=== PATIENT | female | born 1945 | race Caucasian/White ===

== ENCOUNTER 2017-03-07 12:25 | Emergency (ER) | payer OTHER, MEDICARE ==
[~2017-03-07] VITALS: Ht 162.6 cm; Wt 59.0 kg
[2017-03-07 12:25] VITALS: BP_SYST 135
[~2017-03-07 12:25] MED LIST: LEVO50TA77; LISI10TA5 PO; MECL25TA3 PO
[2017-03-07] MEDS ORDERED: ONDANSETRON 4 MG ODT TAB PO ONE (13:00)
[2017-03-07] MEDS ORDERED: NACL 0.9% 1,000 ML IV ONE (14:30)
[2017-03-07] MEDS ORDERED: ONDANSETRON HCL 4 MG/2 ML VIAL IVP ONE (14:30)
[2017-03-07 14:50] LABS: BASOPHILS # (AUTO) 0.1 K/uL (0.0-0.2); BASOPHILS % (AUTO) 1.1 % (0.0-2.0); EOSINOPHILS % (AUTO) 0.2 % (0.0-4.0); HEMATOCRIT 37.4 % (36-48); HEMOGLOBIN 12.6 g/dL (12.0-16.0); LYMPHOCYTES # (AUTO) 0.6 K/uL (1.0-5.5); LYMPHOCYTES % (AUTO) 6.8 % (20.5-51.5); MEAN CORPUSCULAR HEMOGLOBIN 31 pg (27-31); MEAN CORPUSCULAR HGB CONC 34 % (32-36); MEAN CORPUSCULAR VOLUME 91 fL (79.0-98.0); MONOCYTES # (AUTO) 0.3 K/uL (0.0-1.0); MONOCYTES % (AUTO) 3.4 % (1.7-9.3); NEUTROPHILS # (AUTO) 7.2 K/uL (1.8-7.7); NEUTROPHILS % (AUTO) 88.5 % (40.0-70.0); PLATELET COUNT (AUTO) 161 K/uL (130-430); RED BLOOD CELL COUNT(AUTO) 4.11 MIL/uL (4.2-6.2); RED CELL DISTRIBUTION WIDTH 12.4 % (9.0-15.0); WHITE BLOOD COUNT (AUTO) 8.3 K/uL (4.8-10.8)
[2017-03-07 14:58] LABS: CALCIUM 8.4 mg/dL (8.4-11.0); CREATININE 0.67 mg/dL (0.55-1.30); POTASSIUM 3.3 mmol/L (3.5-5.1)
[2017-03-07 15:00] LABS: PROTHROMBIN TIME 10.7 SECS (9.5-12.5)
[2017-03-07 15:02] LABS: TOTAL BILIRUBIN 0.5 mg/dL (0.0-1.0)
[2017-03-07] MEDS ORDERED: IOHEXOL 100 ML IV ONE (15:21)
[2017-03-07 16:11] LABS: BILIRUBIN,URINE NEGATIVE (NEGATIVE); BLOOD, URINE NEGATIVE (NEGATIVE); CLARITY/URINE SL CLOUDY (CLEAR); COLOR,URINE YELLOW (YELLOW); GLUCOSE,URINE NEGATIVE (NEGATIVE); KETONES,URINE 1+ (NEGATIVE); LEUKOCYTE ESTERASE ,URINE NEGATIVE (NEGATIVE); NITRITE, URINE NEGATIVE (NEGATIVE); PH,URINE 7.5 (5.0-8.0); PROTEIN URINE NEGATIVE (NEGATIVE); UROBILINOGEN,URINE 0.2 (0.2-1.0)
[2017-03-07 16:41] LABS: BACTERIA,URINE FEW /HPF (None Seen); MUCUS,URINE None Seen /LPF (None Seen); RBC,URINE 0-3 /HPF (0-3); URINE AMORPHOUS PHOSPHATES 3+ /HPF (None Seen); WBC,URINE 0-3 /HPF (0-3)
[2017-03-07] MEDS ORDERED: ACETAMINOPHEN 500 MG TABLET PO ONE (17:30)
[2017-03-07] MEDS ORDERED: ACETAMINOPHEN 500 MG TABLET ONE (17:37)
[2017-03-07 17:47] VITALS: BP_SYST 131
== END 2017-03-07 17:47 | disposition home or self-care (01) ==
LOC: SED 12:25
DX: K59.00 Constipation, unspecified (principal); K62.3 Rectal prolapse; R11.2 Nausea with vomiting, unspecified; I10 Essential (primary) hypertension; Z90.710 Acquired absence of both cervix and uterus; Z96.642 Presence of left artificial hip joint; Z96.611 Presence of right artificial shoulder joint
CPT/HCPCS: 36415; 74020; 74177; 80053; 80061; 81000; 83880; 85025; 85610; 85730; 93005; 96361; 96374; 99285; J2405; J7030; Q0162; Q9967

== ENCOUNTER 2019-04-01 14:24 | Emergency (ER) | payer OTHER, MEDICARE ==
[~2019-04-01] VITALS: Ht 165.1 cm; Wt 74.8 kg
[~2019-04-01 14:24] MED LIST changes: -LEVO50TA77; +SYN50 PO
--- NOTE | 2019-04-01 14:24 | NUR ---
ACCORDING TO EMS BLS PT WAS GIVEN MORPHINE 4MG AND ZOFRAN 4 MG IV
--- NOTE | 2019-04-01 14:24 | NUR ---
DYLAN DAWKINS at bedside examining patient.
--- NOTE | 2019-04-01 14:24 | NUR ---
BROUGHT IN BY [facility] AND TRIAGED. PLACED IN BED #3, REPORT GIVEN TO JOSELO
[2019-04-01 14:25] VITALS: BP_SYST 141
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
[2019-04-01] MEDS: MORPHINE 4 MG/ML INJ. SYRINGE IVP ONE (14:40)
[2019-04-01] MEDS: ONDANSETRON HCL 4 MG/2 ML VIAL IVP ONE ×2 (14:40→15:46)
--- NOTE | 2019-04-01 14:50 | NUR ---
PATIENT GETTING LABS DRAWN AT BEDSIDE.
[2019-04-01] MEDS: METOCLOPRAMIDE HCL 10 MG/2 ML VIAL IVP ONE (15:05)
[2019-04-01 15:06] LABS: BASOPHILS # (AUTO) 0.1 K/uL (0.0-0.2); BASOPHILS % (AUTO) 0.8 % (0.0-2.0); EOSINOPHILS # (AUTO) 0.1 K/uL (0.0-0.4); EOSINOPHILS % (AUTO) 0.8 % (0.0-4.0); LYMPHOCYTES # (AUTO) 1.5 K/uL (1.0-5.5); LYMPHOCYTES % (AUTO) 17.7 % (20.5-51.5); MEAN CORPUSCULAR HEMOGLOBIN 31 pg (27-31); MEAN CORPUSCULAR HGB CONC 33 % (32-36); MEAN CORPUSCULAR VOLUME 93 fL (79.0-98.0); MONOCYTES # (AUTO) 0.5 K/uL (0.0-1.0); MONOCYTES % (AUTO) 6.7 % (1.7-9.3); NEUTROPHILS # (AUTO) 6.1 K/uL (1.8-7.7); PLATELET COUNT (AUTO) 146 K/uL (130-430); RED CELL DISTRIBUTION WIDTH 13.1 % (9.0-15.0); WHITE BLOOD COUNT (AUTO) 8.2 K/uL (4.8-10.8)
[2019-04-01] MEDS: fentaNYL CITRATE/PF 100 MCG/2 ML AMP IVP ONE ×2 (15:09→16:45)
--- NOTE | 2019-04-01 15:10 | NUR ---
PATIENT WAS ABOUT TO GO TO CT WHEN PATIENT STARTED THROWING UP. PATIENT TURNED ON SIDE. PATIENT HAD SO ASPIRATION. PATIENT CLEANED UP. PATIENT GIVEN MORE NAUSEA AND PAIN MEDICATION.
--- NOTE | 2019-04-01 15:12 | NUR ---
PATIENT LEFT TO CT VIA GURNEY IN STABLE CONDITION.
[2019-04-01 15:14] LABS: ANION GAP 12 (5-15); CALCIUM 9.1 mg/dL (8.4-11.0); CHLORIDE 103 mmol/L (98-107); CREATININE 0.91 mg/dL (0.55-1.30); GLUCOSE 107 mg/dL (70-99); SODIUM SERUM 137 mmol/L (136-145); UREA NITROGEN, BLOOD 17 mg/dL (8-21)
[2019-04-01 15:19] LABS: ALANINE AMINOTRANSFERASE 13 U/L (12-78); ALBUMIN 3.7 g/dL (3.4-4.8); ASPARTATE AMINOTRANSFERASE 22 U/L (10-37); TOTAL BILIRUBIN 0.5 mg/dL (0.0-1.0)
--- NOTE | 2019-04-01 15:50 | NUR ---
SPOKE TO ABOUT END [facility] LIFE CARE FOR . STATES THAT PATIENT FULL CODE.
[2019-04-01] MEDS: NACL 0.9% 1,000 ML IV ONE (16:44)
[2019-04-01] MEDS: POTASSIUM CHLORIDE 40 MEQ in NS 250 ML IV ONE (16:44)
--- NOTE | 2019-04-01 16:50 | NUR ---
# 16 FR In and Out catheter with use of sterile technique. Urine sample collected and sent to lab. Pt tolerated procedure WELL. Patient unable to toilet self.
[2019-04-01] MEDS: PROCHLORPERAZINE EDISYLATE 10 MG/2 ML VIAL IVP ONE (17:02)
[2019-04-01 17:04] LABS: BILIRUBIN,URINE NEGATIVE (NEGATIVE); BLOOD, URINE 1+ (NEGATIVE); CLARITY/URINE SL CLOUDY (CLEAR); COLOR,URINE YELLOW (YELLOW); GLUCOSE,URINE NEGATIVE (NEGATIVE); KETONES,URINE TRACE (NEGATIVE); LEUKOCYTE ESTERASE ,URINE 1+ (NEGATIVE); NITRITE, URINE POSITIVE (NEGATIVE); PH,URINE 7.5 (5.0-8.0); PROTEIN URINE NEGATIVE (NEGATIVE); UROBILINOGEN,URINE 0.2 (0.2-1.0)
[2019-04-01 17:12] LABS: BACTERIA,URINE MANY /HPF (None Seen); RBC,URINE 0-3 /HPF (0-3)
[2019-04-01 17:13] LABS: MUCUS,URINE 2+ /LPF (None Seen); URINE AMORPHOUS PHOSPHATES 3+ /HPF (None Seen)
--- NOTE | 2019-04-01 17:13 | NUR ---
PATIENT GETTING X RAY IN BED.
[2019-04-01] MEDS ORDERED: VORT10TA PO (17:43)
--- NOTE | 2019-04-01 17:43 | NUR ---
Medication reconciliation completed with information provided by SON. Any prior medication reconciliation on file was reviewed and corrected.
[2019-04-01] MEDS: cefTRIAXone 1 GM IVPB PREMIX 50 ML IV ONE (17:51)
--- NOTE | 2019-04-01 18:01 | NUR ---
DR DAWKINS SPEAKING WITH DR ELLIS FOR POSSIBLE ADMISSION
--- NOTE | 2019-04-01 18:06 | NUR ---
DR DAWKINS SPEAKING WITH DR HILL AT [facility]
--- NOTE | 2019-04-01 18:20 | NUR ---
DR DAWKINS AT BEDSIDE TALKING TO PATIENT AND .
--- NOTE | 2019-04-01 18:40 | NUR ---
GAVE REPORT TO NGUYỄN MATA
--- NOTE | 2019-04-01 18:57 | NUR ---
Patient to be transferred to [facility] ER. Is being transferred due to higher level of care. Receiving facility has accepting physician and available space. ER physician has signed transfer form. Patient or responsible libertarian has agreed to transfer and signed form. Patient belongings inventoried and will be sent with patient. Copy of nursing notes, lab reports, EKG, Physicians Orders and X-rays to be sent with patient. Report called to NGUYỄN at receiving facility. Receiving physician is DR HILL. Patient leaving now with ems.
[2019-04-01 18:58] VITALS: BP_SYST 130
== END 2019-04-01 18:57 | disposition short-term general hospital (02) ==
LOC: SED 14:24
DX: S22.32XA Fracture of one rib, left side, initial encounter for closed fracture (principal); S42.202A Unspecified fracture of upper end of left humerus, initial encounter for closed fracture; E87.6 Hypokalemia; N39.0 Urinary tract infection, site not specified; R11.2 Nausea with vomiting, unspecified; I10 Essential (primary) hypertension; Z88.8 Allergy status to other drugs, medicaments and biological substances; V47.6XXA Car passenger injured in collision with fixed or stationary object in traffic accident, initial encounter; Y93.89 Activity, other specified; Y92.828 Other wilderness area as the place of occurrence of the external cause; Y99.8 Other external cause status
CPT/HCPCS: 36415; 70450; 71250; 72125; 73030; 74176; 80053; 81000; 85025; 87086; 87186; 93005; 96365; 96366; 96368; 96375; 96376; 99291; 99292; J0696; J0780; J2270; J2405; J2765; J3010; J3480; J7030; J7050

== ENCOUNTER 2020-11-18 08:29 | Emergency (ER) | payer OTHER, MEDICARE ==
[~2020-11-18] VITALS: Ht 162.6 cm; Wt 59.9 kg
[~2020-11-18 08:29] MED LIST changes: -LISI10TA5 PO; -MECL25TA3 PO; +VORT10TA PO
[2020-11-18 08:50] VITALS: BP_SYST 138
[2020-11-18] MEDS: ONDANSETRON 4 MG ODT TAB PO ONE (09:00)
[2020-11-18] MEDS: DIPH-TET-PERTUS Vaccine 0.5 ML VIAL (ADACEL) I.M. ONE (09:02)
[2020-11-18] MEDS: LIDOCAINE 1% 10 MG/ML, 20 ML MDV INJ ONE (10:25)
[2020-11-18 11:19] VITALS: BP_SYST 143
== END 2020-11-18 11:20 | disposition home or self-care (01) ==
LOC: SED 08:29
DX: S01.81XA Laceration without foreign body of other part of head, initial encounter (principal); I10 Essential (primary) hypertension; Z85.9 Personal history of malignant neoplasm, unspecified; W18.39XA Other fall on same level, initial encounter; Y93.89 Activity, other specified; Y92.89 Other specified places as the place of occurrence of the external cause; Y99.8 Other external cause status
CPT/HCPCS: 12013; 70450; 76376; 90471; 90715; 99284; J2001; Q0162

== ENCOUNTER 2021-01-30 18:38 | Emergency (ER) | payer OTHER, MEDICARE ==
[~2021-01-30] VITALS: Ht 157.5 cm; Wt 59.9 kg
[2021-01-30 18:41] VITALS: BP_SYST 108
[2021-01-30 19:43] LABS: BASOPHILS # (AUTO) 0.1 K/uL (0.0-0.2); BASOPHILS % (AUTO) 1.3 % (0.0-2.0); EOSINOPHILS # (AUTO) 0.1 K/uL (0.0-0.4); EOSINOPHILS % (AUTO) 1.8 % (0.0-4.0); HEMATOCRIT 36.3 % (36-48); HEMOGLOBIN 12.1 g/dL (12.0-16.0); LYMPHOCYTES # (AUTO) 1.7 K/uL (1.0-5.5); LYMPHOCYTES % (AUTO) 30.1 % (20.5-51.5); MEAN CORPUSCULAR HEMOGLOBIN 31 pg (27-31); MEAN CORPUSCULAR HGB CONC 33 % (32-36); MEAN CORPUSCULAR VOLUME 92 fL (79.0-98.0); MONOCYTES # (AUTO) 0.6 K/uL (0.0-1.0); MONOCYTES % (AUTO) 9.9 % (1.7-9.3); NEUTROPHILS # (AUTO) 3.2 K/uL (1.8-7.7); NEUTROPHILS % (AUTO) 56.9 % (40.0-70.0); PLATELET COUNT (AUTO) 169 K/uL (130-430); RED BLOOD CELL COUNT(AUTO) 3.93 MIL/uL (4.2-6.2); RED CELL DISTRIBUTION WIDTH 13.6 % (9.0-15.0); WHITE BLOOD COUNT (AUTO) 5.6 K/uL (4.8-10.8)
[2021-01-30 20:07] LABS: ANION GAP 11 (5-15); CALCIUM 9.2 mg/dL (8.4-11.0); CHLORIDE 105 mmol/L (98-107); CREATININE 0.79 mg/dL (0.55-1.30); GLUCOSE 91 mg/dL (70-99); SODIUM SERUM 141 mmol/L (136-145); UREA NITROGEN, BLOOD 23 mg/dL (8-21)
[2021-01-30 20:11] LABS: ALANINE AMINOTRANSFERASE 10 U/L (12-78); ALBUMIN 3.5 g/dL (3.4-4.8); ASPARTATE AMINOTRANSFERASE 9 U/L (10-37); TOTAL BILIRUBIN 0.4 mg/dL (0.0-1.0)
[2021-01-30 20:29] LABS: PROTHROMBIN TIME 9.9 SECS (9.5-12.5)
[2021-01-30 20:53] LABS: BILIRUBIN,URINE NEGATIVE (NEGATIVE); BLOOD, URINE NEGATIVE (NEGATIVE); COLOR,URINE YELLOW (YELLOW); GLUCOSE,URINE NEGATIVE (NEGATIVE); KETONES,URINE NEGATIVE (NEGATIVE); LEUKOCYTE ESTERASE ,URINE NEGATIVE (NEGATIVE); NITRITE, URINE NEGATIVE (NEGATIVE); PROTEIN URINE TRACE (NEGATIVE); UROBILINOGEN,URINE 0.2 (0.2-1.0)
[2021-01-30 20:55] LABS: CLARITY/URINE SLIGHTLY HAZY (CLEAR)
[2021-01-30 21:21] VITALS: BP_SYST 127
== END 2021-01-30 21:21 | disposition home or self-care (01) ==
LOC: SED 18:38
DX: K62.5 Hemorrhage of anus and rectum (principal); K62.3 Rectal prolapse; I10 Essential (primary) hypertension; F03.90 Unspecified dementia, unspecified severity, without behavioral disturbance, psychotic disturbance, mood disturbance, and anxiety; Z79.899 Other long term (current) drug therapy
CPT/HCPCS: 36415; 80053; 81003; 85025; 85610-TC; 85730-TC; 99283

== ENCOUNTER 2021-03-27 07:33 | Inpatient (IN) | payer OTHER, MEDICARE, SELFPAY ==
[~2021-03-27] VITALS: Ht 165.1 cm; Wt 57.2 kg
[~2021-03-27 07:33] MED LIST changes: +ALVIMOPAN 12 MG CAPSULE PO ONE; +cefOXitin SODIUM 2 GM in D5W 100 ML IV ONE
[2021-03-27] MEDS ORDERED: NS 100 ML BAG IV ONE (09:06)
[2021-03-27] MEDS ORDERED: ROCURONIUM BROMIDE 10 MG/ML (ZEMURON) IV ONE (09:06)
[2021-03-27] MEDS ORDERED: ONDANSETRON HCL 4 MG/2 ML VIAL IVP ONE (09:06)
[2021-03-27] MEDS ORDERED: fentaNYL CITRATE/PF 100 MCG/2 ML AMP IVP ONE (09:06)
[2021-03-27] MEDS ORDERED: SUGAMMADEX SODIUM 200 MG/2 ML VIAL IV ONE (09:06)
[2021-03-27] MEDS ORDERED: DESFLURANE 15 MIN GAS INH ONE (09:06)
[2021-03-27] MEDS ORDERED: MIDAZOLAM HCL 5 MG/5 ML VIAL IVP ONE (09:06)
[2021-03-27] MEDS ORDERED: LR 1,000 ML IV.SOLN IV ONE (09:06)
[2021-03-27] MEDS ORDERED: PROPOFOL 200MG/ 20ML VIAL (DIPRIVAN) IV ONE (09:06)
[2021-03-27] MEDS ORDERED: NS IRRIG SOLN 1000 ML IR ONE (09:06)
[2021-03-27] MEDS ORDERED: MEPERIDINE HCL/PF 25 MG/ML DISP.SYRIN IVP PRN (10:00)
[2021-03-27] MEDS ORDERED: ONDANSETRON HCL 4 MG/2 ML VIAL IVP PRN (10:00)
[2021-03-27] MEDS ORDERED: HYDROmorphone 1 MG/ML INJ. CARTRIDGE IVP PRN ×2 (10:00)
[2021-03-27] MEDS: LR 1,000 ML IV SCH ×2 (10:00→20:00)
[2021-03-27] MEDS ORDERED: MIDAZOLAM HCL 2 MG/2 ML VIAL (VERSED) IVP PRN (10:00)
[2021-03-27] MEDS ORDERED: ACETAMINOPHEN I.V. 1000 MG 100 ML IV ONE (10:10)
[2021-03-27] MEDS ORDERED: BUPIVACAINE LIPOSOME/PF 266 MG/20 ML VIAL INFIL ONE (10:20)
[2021-03-27] MEDS ORDERED: HYDROcodone/ACETAMIN 5-325 MG TAB (NORCO/ VICODIN) PO PRN ×2 (12:00)
[2021-03-27] MEDS ORDERED: ACETAMINOPHEN 325 MG TABLET PO PRN (12:00)
[2021-03-27 12:15] LABS: HEMATOCRIT 37.5 % (36-48); HEMOGLOBIN 12.5 g/dL (12.0-16.0)
[2021-03-27 12:30] LABS: ANION GAP 9 (5-15); CALCIUM 8.7 mg/dL (8.4-11.0); CHLORIDE 106 mmol/L (98-107); CREATININE 0.99 mg/dL (0.55-1.30); GLUCOSE 156 mg/dL (70-99); POTASSIUM 3.8 mmol/L (3.5-5.1); SODIUM SERUM 141 mmol/L (136-145); UREA NITROGEN, BLOOD 24 mg/dL (8-21)
[2021-03-27] MEDS: HYDROmorphone 1 MG/ML INJ. CARTRIDGE ONE ×2 (12:50→12:55)
[2021-03-27] MEDS: HYDROmorphone 1 MG/ML INJ. CARTRIDGE IVP PRN (17:03)
[2021-03-27] MEDS: D5/0.45 NS 1,000 ML IV SCH ×2 (17:10→20:53)
[2021-03-27 20:01] VITALS: BP_SYST 145
[2021-03-27] MEDS: FAMOTIDINE PF 20 MG/2 ML VIAL IVP SCH (20:53)
[2021-03-27] MEDS: cefOXitin SODIUM 2 GM in D5W 100 ML IV SCH (20:53)
[2021-03-27] MEDS ORDERED: cefOXitin SODIUM 2 GM in D5W 100 ML IV SCH (21:00)
[2021-03-28 00:28] VITALS: BP_SYST 142
[2021-03-28] MEDS: D5/0.45 NS 1,000 ML IV SCH ×2 (03:24→16:13)
[2021-03-28] MEDS: LR 1,000 ML IV SCH ×2 (06:00→13:49)
[2021-03-28 08:00] VITALS: BP_SYST 146
[2021-03-28] MEDS: FAMOTIDINE PF 20 MG/2 ML VIAL IVP SCH ×2 (08:18→21:29)
[2021-03-28] MEDS: cefOXitin SODIUM 2 GM in D5W 100 ML IV SCH (08:18)
[2021-03-28] MEDS: HYDROmorphone 1 MG/ML INJ. CARTRIDGE IVP PRN (08:25)
[2021-03-28 08:48] LABS: EOSINOPHILS % (AUTO) 0.1 % (0.0-4.0); LYMPHOCYTES # (AUTO) 0.8 K/uL (1.0-5.5); MEAN CORPUSCULAR HEMOGLOBIN 31 pg (27-31)
[2021-03-28] MEDS ORDERED: NON-FORMULARY MEDICATION (Vortioxetine Hydrobromide (Brintellix) 10 MG) PO SCH (09:45)
[2021-03-28] MEDS ORDERED: LEVOTHYROXINE SODIUM 0.05 MG TABLET PO ONE (10:00)
[2021-03-28] MEDS ORDERED: ENOXAPARIN SODIUM 30 MG/0.3 ML SYRINGE SUBCUT ONE (10:15)
[2021-03-28 10:20] LABS: BASOPHILS % (AUTO) 0.4 % (0.0-2.0); HEMATOCRIT 34.8 % (36-48); HEMOGLOBIN 11.8 g/dL (12.0-16.0); LYMPHOCYTES % (AUTO) 7.2 % (20.5-51.5); MEAN CORPUSCULAR HGB CONC 34 % (32-36); MEAN CORPUSCULAR VOLUME 92 fL (79.0-98.0); MONOCYTES # (AUTO) 0.7 K/uL (0.0-1.0); MONOCYTES % (AUTO) 6.1 % (1.7-9.3); NEUTROPHILS # (AUTO) 9.2 K/uL (1.8-7.7); NEUTROPHILS % (AUTO) 86.2 % (40.0-70.0); PLATELET COUNT (AUTO) 149 K/uL (130-430); RED CELL DISTRIBUTION WIDTH 12.4 % (9.0-15.0); WHITE BLOOD COUNT (AUTO) 10.6 K/uL (4.8-10.8)
[2021-03-28 10:30] LABS: ALANINE AMINOTRANSFERASE 16 U/L (12-78); ALBUMIN 3.2 g/dL (3.4-4.8); ANION GAP 8 (5-15); ASPARTATE AMINOTRANSFERASE 23 U/L (10-37); CALCIUM 8.5 mg/dL (8.4-11.0); CHLORIDE 106 mmol/L (98-107); CREATININE 0.76 mg/dL (0.55-1.30); GLUCOSE 119 mg/dL (70-99); POTASSIUM 3.6 mmol/L (3.5-5.1); SODIUM SERUM 142 mmol/L (136-145); TOTAL BILIRUBIN 0.6 mg/dL (0.0-1.0); UREA NITROGEN, BLOOD 12 mg/dL (8-21)
[2021-03-28 12:13] VITALS: BP_SYST 133
[2021-03-28] MEDS ORDERED: NALOXONE HCL 0.4 MG/ML AMP (NARCAN) IVP PRN (12:30)
[2021-03-28] MEDS ORDERED: HYDROmorphone 1 MG/ML INJ. CARTRIDGE IVP PRN (12:30)
[2021-03-28 16:23] VITALS: BP_SYST 130
[2021-03-28 20:00] VITALS: BP_SYST 139
[2021-03-28] MEDS: ONDANSETRON HCL 4 MG/2 ML VIAL IVP PRN (21:44)
[2021-03-29 00:33] VITALS: BP_SYST 143
[2021-03-29] MEDS: LR 1,000 ML IV SCH ×3 (02:00→20:48)
[2021-03-29] MEDS: D5/0.45 NS 1,000 ML IV SCH ×3 (03:27→20:48)
[2021-03-29 07:17] LABS: BASOPHILS # (AUTO) 0.1 K/uL (0.0-0.2); BASOPHILS % (AUTO) 0.6 % (0.0-2.0); EOSINOPHILS % (AUTO) 0.5 % (0.0-4.0); HEMATOCRIT 33.1 % (36-48); HEMOGLOBIN 11.4 g/dL (12.0-16.0); LYMPHOCYTES # (AUTO) 0.9 K/uL (1.0-5.5); MEAN CORPUSCULAR HEMOGLOBIN 31 pg (27-31); MEAN CORPUSCULAR HGB CONC 34 % (32-36); MEAN CORPUSCULAR VOLUME 91 fL (79.0-98.0); MONOCYTES # (AUTO) 0.6 K/uL (0.0-1.0); MONOCYTES % (AUTO) 6.8 % (1.7-9.3); NEUTROPHILS # (AUTO) 7.4 K/uL (1.8-7.7); NEUTROPHILS % (AUTO) 82.1 % (40.0-70.0); PLATELET COUNT (AUTO) 152 K/uL (130-430); RED BLOOD CELL COUNT(AUTO) 3.65 MIL/uL (4.2-6.2); RED CELL DISTRIBUTION WIDTH 12.5 % (9.0-15.0)
[2021-03-29 07:34] LABS: ALANINE AMINOTRANSFERASE 15 U/L (12-78); ALBUMIN 2.9 g/dL (3.4-4.8); ANION GAP 7 (5-15); ASPARTATE AMINOTRANSFERASE 20 U/L (10-37); CALCIUM 8.7 mg/dL (8.4-11.0); CHLORIDE 105 mmol/L (98-107); CREATININE 0.66 mg/dL (0.55-1.30); GLUCOSE 129 mg/dL (70-99); POTASSIUM 3.2 mmol/L (3.5-5.1); SODIUM SERUM 139 mmol/L (136-145); TOTAL BILIRUBIN 0.6 mg/dL (0.0-1.0); UREA NITROGEN, BLOOD 8 mg/dL (8-21)
[2021-03-29 07:40] VITALS: BP_SYST 128
[2021-03-29] MEDS: LEVOTHYROXINE SODIUM 0.05 MG TABLET PO SCH (09:00)
[2021-03-29] MEDS: FAMOTIDINE PF 20 MG/2 ML VIAL IVP SCH ×2 (10:02→20:42)
[2021-03-29] MEDS: ENOXAPARIN SODIUM 30 MG/0.3 ML SYRINGE SUBCUT SCH (10:04)
[2021-03-29 12:00] VITALS: BP_SYST 152
[2021-03-29 16:12] VITALS: BP_SYST 126
[2021-03-29 16:13] VITALS: BP_SYST 126
[2021-03-29 20:00] VITALS: BP_SYST 146
[2021-03-30 00:19] VITALS: BP_SYST 144
[2021-03-30 08:00] VITALS: BP_SYST 132
[2021-03-30] MEDS: LR 1,000 ML IV SCH (08:00)
[2021-03-30] MEDS: LEVOTHYROXINE SODIUM 0.05 MG TABLET PO SCH (08:57)
[2021-03-30] MEDS: FAMOTIDINE PF 20 MG/2 ML VIAL IVP SCH ×2 (08:57→20:24)
[2021-03-30] MEDS: ENOXAPARIN SODIUM 30 MG/0.3 ML SYRINGE SUBCUT SCH (08:58)
[2021-03-30] MEDS ORDERED: LEVO500T89 PO (11:37)
[2021-03-30 12:29] VITALS: BP_SYST 146
[2021-03-30 16:16] VITALS: BP_SYST 139
[2021-03-30] MEDS: D5/0.45 NS 1,000 ML IV SCH (17:15)
[2021-03-30 20:00] VITALS: BP_SYST 148
[2021-03-30] MEDS: ONDANSETRON HCL 4 MG/2 ML VIAL IVP PRN (21:30)
[2021-03-31] VITALS: BP_SYST 151
[2021-03-31 00:51] VITALS: BP_SYST 168
[2021-03-31] MEDS: D5/0.45 NS 1,000 ML IV SCH ×2 (01:00→21:49)
[2021-03-31] MEDS: ONDANSETRON HCL 4 MG/2 ML VIAL IVP PRN (06:45)
[2021-03-31 07:57] VITALS: BP_SYST 130
[2021-03-31] MEDS: LEVOTHYROXINE SODIUM 0.05 MG TABLET PO SCH (09:00)
[2021-03-31] MEDS ORDERED: METOCLOPRAMIDE HCL 10 MG/2 ML VIAL IVP PRN (11:15)
[2021-03-31 12:29] VITALS: BP_SYST 134
[2021-03-31] MEDS: FAMOTIDINE PF 20 MG/2 ML VIAL IVP SCH ×2 (13:05→21:47)
[2021-03-31] MEDS: ENOXAPARIN SODIUM 30 MG/0.3 ML SYRINGE SUBCUT SCH (13:08)
[2021-03-31 16:19] VITALS: BP_SYST 130
[2021-03-31 19:45] VITALS: BP_SYST 143
[2021-04-01 00:30] VITALS: BP_SYST 133
[2021-04-01] MEDS: D5/0.45 NS 1,000 ML IV SCH (02:00)
[2021-04-01 06:44] LABS: BASOPHILS % (AUTO) 0.5 % (0.0-2.0); EOSINOPHILS # (AUTO) 0.2 K/uL (0.0-0.4); EOSINOPHILS % (AUTO) 1.9 % (0.0-4.0); HEMATOCRIT 34.7 % (36-48); HEMOGLOBIN 11.9 g/dL (12.0-16.0); LYMPHOCYTES # (AUTO) 1.2 K/uL (1.0-5.5); LYMPHOCYTES % (AUTO) 14.8 % (20.5-51.5); MEAN CORPUSCULAR HEMOGLOBIN 31 pg (27-31); MEAN CORPUSCULAR HGB CONC 34 % (32-36); MEAN CORPUSCULAR VOLUME 90 fL (79.0-98.0); MONOCYTES # (AUTO) 0.8 K/uL (0.0-1.0); MONOCYTES % (AUTO) 10.1 % (1.7-9.3); NEUTROPHILS % (AUTO) 72.7 % (40.0-70.0); PLATELET COUNT (AUTO) 140 K/uL (130-430); RED BLOOD CELL COUNT(AUTO) 3.84 MIL/uL (4.2-6.2); RED CELL DISTRIBUTION WIDTH 12.7 % (9.0-15.0); WHITE BLOOD COUNT (AUTO) 8.3 K/uL (4.8-10.8)
[2021-04-01 07:05] LABS: ALANINE AMINOTRANSFERASE 18 U/L (12-78); ALBUMIN 2.6 g/dL (3.4-4.8); ANION GAP 9 (5-15); ASPARTATE AMINOTRANSFERASE 19 U/L (10-37); CALCIUM 8.6 mg/dL (8.4-11.0); CHLORIDE 104 mmol/L (98-107); CREATININE 0.72 mg/dL (0.55-1.30); GLUCOSE 115 mg/dL (70-99); SODIUM SERUM 141 mmol/L (136-145); TOTAL BILIRUBIN 0.6 mg/dL (0.0-1.0); UREA NITROGEN, BLOOD 19 mg/dL (8-21)
[2021-04-01 07:25] LABS: POTASSIUM 2.9 mmol/L (3.5-5.1)
[2021-04-01] MEDS ORDERED: POTASSIUM CHLORIDE 20 MEQ TAB.PRT.SR PO ONE (07:45)
[2021-04-01 07:48] VITALS: BP_SYST 132
[2021-04-01] MEDS: LEVOTHYROXINE SODIUM 0.05 MG TABLET PO SCH (08:34)
[2021-04-01] MEDS: FAMOTIDINE PF 20 MG/2 ML VIAL IVP SCH ×2 (08:35→22:20)
[2021-04-01] MEDS: ENOXAPARIN SODIUM 30 MG/0.3 ML SYRINGE SUBCUT SCH (08:36)
[2021-04-01 12:08] VITALS: BP_SYST 137
[2021-04-01 16:07] VITALS: BP_SYST 118
[2021-04-01 20:00] VITALS: BP_SYST 156
[2021-04-02 00:33] VITALS: BP_SYST 165
[2021-04-02] MEDS: D5/0.45 NS 1,000 ML IV SCH ×3 (02:30→15:30)
[2021-04-02 08:03] LABS: BASOPHILS # (AUTO) 0.1 K/uL (0.0-0.2); BASOPHILS % (AUTO) 0.9 % (0.0-2.0); EOSINOPHILS # (AUTO) 0.1 K/uL (0.0-0.4); EOSINOPHILS % (AUTO) 2.1 % (0.0-4.0); LYMPHOCYTES % (AUTO) 14.8 % (20.5-51.5); MEAN CORPUSCULAR HEMOGLOBIN 31 pg (27-31); MEAN CORPUSCULAR HGB CONC 35 % (32-36); MEAN CORPUSCULAR VOLUME 90 fL (79.0-98.0); MONOCYTES # (AUTO) 0.6 K/uL (0.0-1.0); MONOCYTES % (AUTO) 9.1 % (1.7-9.3); NEUTROPHILS # (AUTO) 5.1 K/uL (1.8-7.7); NEUTROPHILS % (AUTO) 73.1 % (40.0-70.0); PLATELET COUNT (AUTO) 154 K/uL (130-430); RED BLOOD CELL COUNT(AUTO) 3.54 MIL/uL (4.2-6.2); RED CELL DISTRIBUTION WIDTH 12.5 % (9.0-15.0); WHITE BLOOD COUNT (AUTO) 6.9 K/uL (4.8-10.8)
[2021-04-02 08:14] LABS: ALANINE AMINOTRANSFERASE 25 U/L (12-78); ALBUMIN 2.7 g/dL (3.4-4.8); ANION GAP 7 (5-15); ASPARTATE AMINOTRANSFERASE 22 U/L (10-37); CALCIUM 8.2 mg/dL (8.4-11.0); CHLORIDE 107 mmol/L (98-107); CREATININE 0.51 mg/dL (0.55-1.30); GLUCOSE 98 mg/dL (70-99); POTASSIUM 3.2 mmol/L (3.5-5.1); SODIUM SERUM 143 mmol/L (136-145); TOTAL BILIRUBIN 0.6 mg/dL (0.0-1.0); UREA NITROGEN, BLOOD 11 mg/dL (8-21)
[2021-04-02 08:16] VITALS: BP_SYST 130
[2021-04-02] MEDS: LEVOTHYROXINE SODIUM 0.05 MG TABLET PO SCH (08:23)
[2021-04-02] MEDS: FAMOTIDINE PF 20 MG/2 ML VIAL IVP SCH ×2 (08:23→20:57)
[2021-04-02] MEDS: ENOXAPARIN SODIUM 30 MG/0.3 ML SYRINGE SUBCUT SCH (08:28)
[2021-04-02] MEDS ORDERED: DEXTROSE 50% JECT 50 ML DISP.SYRIN IVP PRN (11:00)
[2021-04-02] MEDS ORDERED: *TPN PER PHARMACY XX PRN (11:00)
[2021-04-02] MEDS ORDERED: INSULIN REGULAR, HUMAN 100 UNITS/ML, 10 ML VIAL (humuLIN R) SUBCUT PRN (11:00)
[2021-04-02] MEDS ORDERED: POTASSIUM CHLORIDE 40 MEQ in NS 250 ML IV ONE (12:00)
[2021-04-02 12:08] VITALS: BP_SYST 129
[2021-04-02 12:11] LABS: INR 1.1 (0.8-1.2); PROTHROMBIN TIME 11.1 SECS (9.5-12.5)
[2021-04-02 16:06] VITALS: BP_SYST 137
[2021-04-02 20:00] VITALS: BP_SYST 149
[2021-04-02 22:15] VITALS: BP_SYST 149
[2021-04-03 00:45] VITALS: BP_SYST 138
[2021-04-03] MEDS: D5/0.45 NS 1,000 ML IV SCH (05:06)
[2021-04-03 06:39] LABS: BASOPHILS # (AUTO) 0.1 K/uL (0.0-0.2); BASOPHILS % (AUTO) 1.1 % (0.0-2.0); EOSINOPHILS # (AUTO) 0.2 K/uL (0.0-0.4); HEMATOCRIT 32.4 % (36-48); HEMOGLOBIN 11.1 g/dL (12.0-16.0); LYMPHOCYTES # (AUTO) 1.1 K/uL (1.0-5.5); LYMPHOCYTES % (AUTO) 16.6 % (20.5-51.5); MEAN CORPUSCULAR HEMOGLOBIN 31 pg (27-31); MEAN CORPUSCULAR HGB CONC 34 % (32-36); MEAN CORPUSCULAR VOLUME 90 fL (79.0-98.0); MONOCYTES # (AUTO) 0.6 K/uL (0.0-1.0); MONOCYTES % (AUTO) 9.7 % (1.7-9.3); NEUTROPHILS # (AUTO) 4.6 K/uL (1.8-7.7); NEUTROPHILS % (AUTO) 69.6 % (40.0-70.0); PLATELET COUNT (AUTO) 172 K/uL (130-430); RED CELL DISTRIBUTION WIDTH 12.8 % (9.0-15.0); WHITE BLOOD COUNT (AUTO) 6.7 K/uL (4.8-10.8)
[2021-04-03 07:21] LABS: ALANINE AMINOTRANSFERASE 24 U/L (12-78); ALBUMIN 2.7 g/dL (3.4-4.8); ANION GAP 7 (5-15); ASPARTATE AMINOTRANSFERASE 16 U/L (10-37); CALCIUM 8.6 mg/dL (8.4-11.0); CHLORIDE 105 mmol/L (98-107); CREATININE 0.53 mg/dL (0.55-1.30); GLUCOSE 101 mg/dL (70-99); PHOSPHORUS 3.2 mg/dL (2.7-4.5); POTASSIUM 3.5 mmol/L (3.5-5.1); SODIUM SERUM 141 mmol/L (136-145); TOTAL BILIRUBIN 0.4 mg/dL (0.0-1.0); UREA NITROGEN, BLOOD 11 mg/dL (8-21)
[2021-04-03 08:10] VITALS: BP_SYST 130
[2021-04-03 09:34] LABS: TRIGLYCERIDES 56 mg/dL (30-150)
[2021-04-03] MEDS: LEVOTHYROXINE SODIUM 0.05 MG TABLET PO SCH (09:34)
[2021-04-03] MEDS: FAMOTIDINE PF 20 MG/2 ML VIAL IVP SCH (09:34)
[2021-04-03] MEDS: ENOXAPARIN SODIUM 30 MG/0.3 ML SYRINGE SUBCUT SCH (09:36)
[2021-04-03 10:12] VITALS: BP_SYST 130
[2021-04-03] MEDS ORDERED: [UNRECOGNIZED DRUG - OTHER] IV SCH ×9 (21:00)
[2021-04-03] MEDS ORDERED: TPN PERIPHERAL IV SCH ×9 (21:00)
[2021-04-03] MEDS ORDERED: D5/0.45 NS 1,000 ML IV SCH (21:00)
[2021-04-03] MEDS ORDERED: POTASSIUM CHLORIDE IV SCH ×9 (21:00)
[2021-04-03] MEDS ORDERED: NA PHOS IV SCH ×9 (21:00)
== END 2021-04-03 12:10 | DRG 329 ==
LOC: SDS 07:33 → SMU 07:36 → SDS 17:05
PROVIDERS: ADMIT Colon & Rectal Surgery; ATTEND Colon & Rectal Surgery
PROC: 0DQP4ZZ Repair Rectum, Percutaneous Endoscopic Approach (ICD-10-PCS; principal; 2021-03-27 09:00)
DX: K62.3 Rectal prolapse (principal); E43 Unspecified severe protein-calorie malnutrition; G93.40 Encephalopathy, unspecified; Q43.8 Other specified congenital malformations of intestine; E03.9 Hypothyroidism, unspecified; D64.9 Anemia, unspecified; E87.6 Hypokalemia; Z20.822 Contact with and (suspected) exposure to COVID-19; R73.9 Hyperglycemia, unspecified; E88.09 Other disorders of plasma-protein metabolism, not elsewhere classified; E83.52 Hypercalcemia; Z68.21 Body mass index [BMI] 21.0-21.9, adult
CPT/HCPCS: 36415; 71045; 80048; 80053; 82962; 83735; 84100; 84132; 84478; 85018; 85025; 85610-TC; 85730-TC; 86870; 86886; 86900; 86901; 87081; 88307; 92610-GN; 97116-GP; C1727; C9290; C9399; J0131; J0610; J0694; J1170; J1650; J1815; J2250; J2405; J2704; J2765; J3010; J3475; J3480; J3490; J7050; J7060; J7120; U0003